=== PATIENT | female | born 1990 | race Caucasian/White ===

== ENCOUNTER 2018-11-09 12:07 | Emergency (ER) | payer SELFPAY ==
[2018-11-09 12:23] VITALS: TEMP 97.4
[2018-11-09] MEDS ORDERED: LIDOCAINE 1% 50 ML VIAL INJ ONE (12:28)
[2018-11-09] MEDS ORDERED: TETANUS,DIPHTHERIA,PERTUSSIS 1 EA SYG IM ONE (12:59)
--- NOTE | 2018-11-09 12:59 | ED.PDOC ---
History of Present Illness - General Chief Complaint: Lower Extremity Injury Stated Complaint: right knee injury Time Seen by Provider: 11/09/18 12:35 Source: patient Exam Limitations: no limitations - History of Present Illness Initial Comments: Patient presents with abrasions on both knees and a laceration on the right knee after falling on the sidewalk. She has pain in both knees as well. She was able to ambulate. The pain is constant and throbbing, nonradiating, no previous injuries. No other injuries nor complaints. Timing/Duration: 1-3 hours Severity: moderate Improving Factors: rest Worsening Factors: movement Associated Symptoms: denies symptoms Allergies/Adverse Reactions: Allergies NO KNOWN ALLERGY Allergy (Verified 11/09/18 12:24) Home Medications: Ambulatory Orders NK 11/09/18 Review of Systems - Review of Systems Constitutional: States: no symptoms reported EENTM: States: no symptoms reported Respiratory: States: no symptoms reported Cardiology: States: no symptoms reported Gastrointestinal/Abdominal: States: no symptoms reported Genitourinary: States: no symptoms reported Musculoskeletal: States: see HPI Skin: States: see HPI Neurological: States: no symptoms reported Endocrine: States: no symptoms reported Hematologic/Lymphatic: States: no symptoms reported Past Medical History (General) - Patient Medical History Hx Seizures: No Hx Stroke: No Hx Asthma: No Hx of COPD: No Hx Pacemaker: No Hx Thyroid Disease: No Hx Diabetes: No Surgical History: other - Social History Hx Tobacco Use: Yes Family Medical History - Family History Mother Family History: Unknown Physical Exam - Physical Exam General Appearance: Alert Respiratory: lungs clear, normal breath sounds Cardiovascular/Chest: normal peripheral pulses, regular rate, rhythm Gastrointestinal/Abdominal: normal bowel sounds, non tender, soft Extremity: other - knees bilaterally are TTP. no edema. There are two quarter size abrasions on the left anterior knee, one quarter size abrasion on the anterior right knee, and a 3 cm transverse laceration on the anterior right knee. Hemostatic. Bone not visible. Neurologic: no motor/sensory deficits, alert, normal mood/affect, oriented x 3 Skin Exam: other Progress - Progress Progress: 11/09/18 15:17 Laceration site was prepped and draped in a sterile fashion. 6 cc of lidocaine without epinephrine used to gain excellent local anesthesia. Wound scrubbed with hibacleanse sponge and irrigated with 60 cc sterile NS. 6 interrupted sutures using 4-0 Prolene were used to gain excellent wound edge opposition. Area was clean, dry, and hemostatic upon completion. Patient tolerated procedure well. Tetanus booster given. Care instructions given. E.R. warnings given. Questions were elicited and answered. Patient voiced understanding and agreement with the plan. Departure - Departure Clinical Impression: Laceration Disposition: Discharge to Home or Self Care Condition: Good Departure Forms: ED Discharge - Pt. Copy, Patient Portal Self Enrollment Instructions: Laceration Repair With Stitches (DC) Diet: resume usual diet Activity: increase activity as tolerated, other - Limit activity of the right knee to help prevent sutures from popping out. Refrain from swimming while the sutures are in place. Referrals: Gigi Summers MD [Primary Care Provider] - 1-2 Weeks Home Medications: Ambulatory Orders NK 11/09/18 Additional Instructions: Apply topical antibiotic to all of the wounds twice per day for ten days. Keep those areas clean. No swimming. Return to the E.R. or your regular doctor in 10 days for suture removal. Return to the E.R. for increasing pain or numbness in the right leg or temperature greater than 100.3.
--- NOTE | 2018-11-09 14:07 | RAD ---
PROVIDED CLINICAL HISTORY/REASON FOR EXAM: fall with pain Findings: Number of images: Six Location: Right and left knee Right knee: No acute fracture or dislocation. Joint spaces are maintained. Soft tissue swelling/defect anterior to the right patella. Trace joint effusion. Left knee: No acute fracture or dislocation. No focal soft tissue swelling. Joint spaces are maintained. No significant joint effusion. IMPRESSION: No acute osseous abnormality in either knee. Anterior right knee soft tissue swelling/defect. Electronically signed by: Miguel Bruce MD 11/09/2018 2:06 PM CDT
[2018-11-09] MEDS ORDERED: NEOMYCIN-BACITRACIN-POLYMYXIN 0.9 GM UD TOP ONE (15:26)
[2018-11-09 16:04] VITALS: O2SAT 98
[2018-11-09 16:05] VITALS: BP 118/80
== END 2018-11-09 16:06 | disposition home or self-care (01) ==
LOC: ER 12:07
DX: S81.811A Laceration without foreign body, right lower leg, initial encounter (principal); S80.812A Abrasion, left lower leg, initial encounter; Z87.891 Personal history of nicotine dependence; Y92.480 Sidewalk as the place of occurrence of the external cause; W01.0XXA Fall on same level from slipping, tripping and stumbling without subsequent striking against object, initial encounter